=== PATIENT | female | born 1965 | race Caucasian/White ===

== ENCOUNTER 2023-09-11 12:08 | Day surgery (SDC) | payer BC, SELFPAY ==
--- NOTE | 2023-09-11 | FL_ITS ---
[address] [address] Patient Name: CHLOE BARLOW MRN: [id number] date: 1965 Sex: F Assigned Patient Location: [facility] Current Patient Location: Accession/Order Number: [id number] Exam Date: 09/11/2023 12:30 Report Date: 09/14/2023 10:04 At the request of: JOAN BENITEZ Procedure: FL fluoroscopy <1hr NON-READ EXAM: FL fluoroscopy <1hr NON-READ HISTORY: TECHNIQUE: FINDINGS: Please see Operative Report. Electronically authenticated by: RADIOLOGIST NO Date: 09/14/2023 10:04
[2023-09-11] MEDS: LIDOCAINE 2% JELLY 20 ML UR (12:52)
--- NOTE | 2023-09-11 13:09 | PM.URSON ---
Urology Surgery Operative Note Operative Note Procedure Date: 09/11/23 Time Out Performed: yes Pre-op Diagnosis: Obstructing right ureteral calculus; 1 cm Post-op Diagnosis: same as pre-op Procedures performed: 1. Cystoscopy. 2. Right stent placement 6 Macedonian variable length. 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 One of her stones has dropped into her right proximal ureter causing continuous significant pain with nausea. She has been to the emergency room twice. I saw her in the office today and she was desirous for stent placement to decompress her kidney and relieve her pain. Since her hypercoagulable state has not been elucidated by hematology yet ,I agreed to do cystoscopy and right stent placement only under a local. She has signed an informed consent for these procedures after risks were explained. Detailed description of Procedure: The patient was brought to the operating room and placed on the operating room table in the modified dorsolithotomy position. All pressure points were satisfactorily padded. Genitalia were sterilely prepped and draped in the usual fashion. Timeout was done by all parties in the room. We all agreed upon the patient's identification and the planned procedures for this patient. 2% lidocaine gel was passed per urethra. I started by passing a 22 Macedonian Olympus cystoscope per urethra and into the bladder. Panendoscopy revealed no evidence of any tumors or stones within the bladder. While using fluoroscopy I could clearly see her stones within the right kidney and the 1 cm UPJ stone. I then passed a Glidewire through the scope and cannulated the right ureter. I was able to get the wire up to the stone and eventually beyond the stone into the kidney. I then slid a 6 Macedonian variable length ureteral stent over the wire and up to the stone. With steady pressure eventually I was able to get the stent into the renal pelvis, but in doing so the stone at the UPJ also popped back Into the kidney. The wire was removed and there were good curls of the stent within the renal pelvis and the bladder. There was an immediate high-pressure flux of trapped urine coming down around and through the stent into the bladder. The bladder was drained of its contents and the scope was then removed. She was then discharged to home.
== END 2023-09-11 13:30 | disposition home or self-care (01) ==
PROVIDERS: PCP Emergency Medicine; Visit Provider Urology
PROC: (CPT 52332; principal; 2023-09-11 12:30)
DX: N13.2 Hydronephrosis with renal and ureteral calculous obstruction (principal); R10.9 Unspecified abdominal pain; Z86.718 Personal history of other venous thrombosis and embolism; Z86.711 Personal history of pulmonary embolism; I10 Essential (primary) hypertension; F32.A Depression, unspecified; I48.91 Unspecified atrial fibrillation; R73.03 Prediabetes; E03.9 Hypothyroidism, unspecified; Z79.01 Long term (current) use of anticoagulants; Z80.0 Family history of malignant neoplasm of digestive organs; R31.0 Gross hematuria; Z90.710 Acquired absence of both cervix and uterus
CPT/HCPCS: 52332; 76000